=== PATIENT | female | born 1970 | race Caucasian/White ===

== ENCOUNTER 2018-06-26 07:00 | Day surgery (SDC) | payer OTHER ==
[~2018-06-26] VITALS: Ht 167.6 cm; Wt 81.6 kg
[~2018-06-26 07:00] MED LIST: PRISTIQ ER100 MG PO
[2018-06-27] MEDS ORDERED: ULTRAM50 MG PO (10:10)
[2018-06-27] MEDS ORDERED: DOCUSATE SODIU100 MG PO (10:10)
== END 2018-06-27 10:00 | disposition home or self-care (01) ==
LOC: CIR.AMB 07:00 → OB/GYN 08:30 → EDSTATUS 08:30 → OB/GYN 10:09 → O/R 10:09 → OB/GYN 15:47 → CIR.AMB 06-27 10:00 → O/R 06-27 13:30 → OB/GYN 06-27 13:30
DX: D25.1 Intramural leiomyoma of uterus (principal)